=== PATIENT | male | born 1975 | race Caucasian/White ===

== ENCOUNTER 2025-01-28 19:29 | Emergency (ER) | payer OTHER, SELFPAY ==
[2025-01-28 19:31] VITALS: BP 141/81; PULSE 133; RESP 18; TEMP 36.4; O2SAT 97; BMI 33.4
--- NOTE | 2025-01-28 19:45 | EKG12_ITS ---
Test Reason : CP Blood Pressure : */* mmHG Vent. Rate : 137 BPM Atrial Rate : 137 BPM P-R Int : 132 ms QRS Dur : 80 ms QT Int : 294 ms P-R-T Axes : 39 55 38 degrees QTcB Int : 443 ms Sinus tachycardia Otherwise normal ECG Confirmed by Pablo Cloud ([id number]), international editorial producer BELLA NGUYEN ([id number]) on 01/30/2025 10:29:08 AM Referred By: Confirmed By: Pablo Cloud
[2025-01-28] MEDS: 0.9% Normal Saline (1000mL) 1,000 ML 999 ML IV (19:52)
[2025-01-28 19:54] LABS: Hematocrit 49.6 % (40-54); Hemoglobin 17.4 g/dL (13.0-16.5); Immature Granulocytes Count 0.080 X10^3/uL (0.0-0.0); Mean Corp Hgb Conc 35.1 g/dL (32-36); Mean Corpuscular Volume 92.4 fL (80-94); Mean Platelet Vol. 10.9 fl (6.2-12.0); NRBC Flagged by Analyzer 0 % (0-5); Platelet Count 234 K/mm3 (150-450); RBC Distribution Width CV 12.5 % (11.6-14.6); RBC Distribution Width SD 42.6 fl (35.1-43.9); Red Blood Count 5.37 M/mm3 (4.6-6.2); White Blood Count 10.0 K/mm3 (4.4-11.0)
--- NOTE | 2025-01-28 20:00 | RAD_ITS ---
PROCEDURE: CHEST 1 VIEW (PORTABLE) 01/28/2025 REASON FOR EXAM: CHEST PAIN TECHNIQUE: Frontal view of the chest. COMPARISON: None FINDINGS: No focal consolidation. Bibasilar subsegmental atelectasis. No pleural effusion or pneumothorax. Cardiac silhouette is within normal limits. No acute fractures. RAD/Chest 1 View (Portable) IMPRESSION: No focal consolidations. Bibasilar subsegmental atelectasis. Reading Location: [id number]
[2025-01-28 20:13] LABS: Anion Gap 10 (5-15); BUN 16 mg/dL (4-19); BUN/Creat Ratio 12.9 RATIO (10-20); Calcium,Total 9.0 mg/dL (7.6-11.0); Carbon Dioxide 26.0 mmol/L (21.0-32.0); Chloride 104 mmol/L (98-108); Estimated Creatinine Clearance 92.65 ml/min (50-250); Glucose 176 mg/dL (70-99); Potassium 3.6 mmol/L (3.3-5.1); Pro- Brain NATRIURETIC PEPTIDE < 36 pg/mL (<=450); Troponin T High Sensitivity 7 ng/L (<=22)
[2025-01-28 20:23] LABS: D-Dimer Quantitative (DVT/PE) 0.82 FEU/ug/m (0.27-0.49)
--- NOTE | 2025-01-28 20:23 | CT_ITS ---
PROCEDURE: CTA CHEST W/WO CONTRAST 01/28/2025 REASON FOR EXAM: ELEVATED DIMER TECHNIQUE: Procedure Code: [id number] Modality: CT Procedure: CTA CHEST W/WO CONTRAST Multiplanar Sagittal and Coronal images were obtained. 3D post processing was performed. CONTRAST: Isovue 370 VOLUME: 100 mL One or more dose reduction techniques were used (e.g., Automated exposure control, adjustment of the mA and/or kV according to patient size, use of iterative reconstruction technique). RADIATION DOSE SUMMARY: DLP: 537.33 mGycm COMPARISON: None. FINDINGS: PULMONARY VESSELS: No filling defects suspicious for pulmonary arterial emboli identified. Normal caliber main pulmonary trunk. No evidence of cardiac strain. LUNGS/PLEURA: Clear. No airspace consolidation or findings of pulmonary edema. Mild bilateral dependent atelectasis. No pneumothorax or pleural effusion. Patent central airways. MEDIASTINUM: Unremarkable. No lymphadenopathy. HEART: Normal in size. No pericardial effusion or coronary artery calcification. THORACIC AORTA: Normal. No aneurysm or dissection. UPPER ABDOMEN: Unremarkable, as visualized. BONES: Degenerative changes of the spine with DISH. CT/CTA Chest W/WO Contrast IMPRESSION: No acute intrathoracic abnormality. No pulmonary arterial emboli. Reading Location: [id number]
--- NOTE | 2025-01-28 20:29 | EDS_ITS ---
HPI History of Present Illness Chief Complaint: Chest Pain Narrative Narrative: Patient was seen and examined after presenting to ED for having multiple notifications on his Apple Watch stating that he was consistently having elevated heart rate above 120 states has been happening for couple hours now at this point started to have chest pain he states that he took his usual half of a gummy of delta 8 in order to help him sleep and it is the same brand that he usually uses no history of DVT or PE not on anticoagulation no known cardiac history himself. PFSH PFSH Medical History no medical history Home Medications ?Medication ?Instructions ?Recorded ?Last Taken ?Type ciprofloxacin HCl 500 mg tablet 500 mg PO BID 01/28/25 Unknown History Allergy/AdvReac Type Severity Reaction Status Date / Time Penicillins Allergy Unknown Verified 01/28/25 19:35 Family History no significant family his Surgical History no surgical history Social History Smoking Status: Never smoker ROS ROS ED ROS Narrative Pertinent Positives: Chest pain and pressure tachycardia shortness of breath Pertinent Negatives: Fevers chills nausea vomiting diarrhea body aches The remainder of review of systems negative unless otherwise stated in the HPI above. Systems reviewed including constitutional, psychiatric, cardiovascular, respiratory, integument, HENT, gastrointestinal. EXAM Physical Exam Narrative Exam Narrative: Patient is afebrile blood pressure is appropriate however he is consistently tachycardic in the 130s oxygenating well on room air though abdomen is soft nontender nondistended no palpable pulsatile mass he has intact and equal MSPs in his extremities no lower extremity edema or calf tenderness normal heart and lung sounds. Const Vital Signs: 01/28/25 19:31 01/28/25 19:36 01/28/25 19:55 Temperature 97.5 F L Temperature Source Oral Pulse Rate 133 H Respiratory Rate 18 Respiratory Effort Normal Non-Labored Blood Pressure 141/81 H Blood Pressure Mean 101 Pulse Ox 97 Oxygen Delivery Method Room Air Room Air 01/28/25 20:30 01/28/25 21:00 01/28/25 22:00 Temperature Temperature Source Pulse Rate 128 H 116 H 104 H Respiratory Rate 23 H 19 H Respiratory Effort Blood Pressure 118/78 123/73 H 122/65 H Blood Pressure Mean 91 89 84 Pulse Ox 97 94 91 Oxygen Delivery Method Room Air Room Air MDM MDM MDM Narrative Medical decision making narrative: Nursing notes, triage notes, available previous documentation, and vital signs were reviewed. Any discrepancies noted were addressed. Differential Diagnoses: Need to consider possibility of PE there was suspicion for ACS need to evaluate for electrolyte abnormalities he is sinus tachycardia on the monitor Interventions: 1 L normal saline Labs Reviewed: D-dimer is elevated at 0.82 no leukocytosis leukopenia hemoglobin is 17.4 no significant electrolyte abnormality creatinine is 1.2 troponin is 7 proBNP is less than 36 delta troponin was also unremarkable Imaging Reviewed: Personally reviewed and interpreted by me: Chest x-ray no pneumonia edema widened mediastinum or pneumothoraces CT angio of the chest without evidence of PE or other acute pathology EKG: Sinus tachycardia rate of 137. EKG interpretation is noted and agreed to in the EMR. The interpretation of this patient's EKG contributed directly to the care and management of this patient. Risk Stratification Tools: PERC Rule: Positive based on heart rate being greater than 100 and he is on testosterone PERC positive. D-Dimer ordered. Wells Score: Clinical signs & symptoms of DVT: No PE is #1 diagnosis or equally likely: No HR >100 at any time: Yes +1.5 Immobilization at least 3 days or surgery in the previous 4 weeks: No Previous, objectively diagnosed PE or DVT: No Hemoptysis: No Malignancy in last 6 months: No Risk: Low <2 points: 1.3% incidence of PE. PERC +. D-Dimer 0.82. Previous Documentation Reviewed: None available or applicable at this time. ED Course: Patient presenting with symptoms as stated above he was consistently tachycardic D-dimer is elevated we will get a CT angio of the chest. 2314: Patient's pain has improved and his heart rate is now in the 90s patient is feeling better overall delta troponin was 8 CT angio of the chest was without acute pathology especially for PE so at this point return precautions follow-up recommendations provided patient stable for discharge home This note was made utilizing voice recognition software. All attempts were made to correct spelling or other errors prior to note completion. However, due to the fast-paced nature of emergency medicine, some errors may still be present. Lab Data Labs: Laboratory Results - last 24 hr 01/28/25 01/28/25 01/28/25 19:40 19:50 21:40 WBC 10.0 RBC 5.37 Hgb 17.4 H Hct 49.6 MCV 92.4 MCH 32.4 H MCHC 35.1 RDW Std Deviation 42.6 RDW Coeff of Lyle 12.5 Plt Count 234 MPV 10.9 Immature Gran % (Auto) 0.800 Neut % (Auto) 69.0 Lymph % (Auto) 21.7 Clinch % (Auto) 6.6 Eos % (Auto) 1.4 Baso % (Auto) 0.5 Absolute Neuts (auto) 6.9 Absolute Lymphs (auto) 2.17 Nucleated RBC % 0 D-Dimer Quant (PE/DVT) 0.82 H* Sodium 140 Potassium 3.6 Chloride 104 Carbon Dioxide 26.0 Anion Gap 10 BUN 16 Creatinine 1.21 H Estim Creat Clear Calc 92.65 Est GFR (MDRD) Non-Af 73 BUN/Creatinine Ratio 12.9 Glucose 176 H Calcium 9.0 Troponin T High Sens 7 Troponin T Hi Sens 2 Hr 8 NT pro BNP II < 36 Radiography Diagnostic Testing: Clinical Impression(s) from Imaging Studies Chest X-Ray 01/28/25 20:00 IMPRESSION: No focal consolidations. Bibasilar subsegmental atelectasis. Reading Location: [facility] Chest CTA 01/28/25 20:23 IMPRESSION: No acute intrathoracic abnormality. No pulmonary arterial emboli. Reading Location: [facility] Discharge Plan Triage Chief Complaint: Chest Pain ED Provider: Luis Carlos Tapia Dx/Rx/DC Orders Clinical Impression: Chest pain of uncertain etiology, Sinus tachycardia Instructions: ED Chest Pain, Uncertain Cause Prescriptions: No Action ciprofloxacin HCl 500 mg tablet 500 mg PO BID Primary Care Provider: Care Physician,No Primary Referrals: Care Physician,No Primary [Primary Care Provider, Medical] Activity Restrictions/Additional Instructions: Please follow-up with your primary care doctor. You can always return if you are having worsening symptoms. Print Language: Georgian Disposition Disposition: Home, Self Care
[2025-01-28 20:30] VITALS: BP 118/78; PULSE 128; RESP 23; O2SAT 97
--- OUTSIDE RECORDS SUMMARY | 2025-01-28 20:47 | XMS RPT_ITS | CCD ---
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 Name Role Phone No, Physician Primary Care Provider Unavaileyad Giron III, MD, Frank A Primary Care Provider HARLEY SHARIF Admitting Unavailab HARLEY Patel Attending Unavailab AMOS Garcia III Primary Care Unavailable AMOS GIRON III Primary Care Unavailable JODY TRENT Attending Unavailable JODY TRENT Referring Unavailable BREE BABIN, AMOS Siddiqi Primary Care Unavailable TIM COPELAND Referring Unavailab JODY Serna Attending Unavailable JULIAN, PHYSICIAN Primary Care Unavailable PRIYANKA RÍOS Attending Unavailable Bree BABIN MD, Frank A Primary Care Provider [phone] AMOS GIRON III Primary Care Unavailable RENY MCLAUGHLIN Attending Unavailable AMOS GIRON III Primary Care Unavailable RENY MCLAUGHLIN Referring Unavailable RENY MCLAUGHLIN Admitting Unavailable Allergies Allergy Classification Reported Allergen(s) Allergy Type Date of Onset Reaction(s) Facility (12 sources) Penicillins; Translations: [PENICILLINS] Propensity to adverse reactions to drug 2 Other (See Comments) [facility] (6 sources) FLUoxetine; Translations: [FLUOXETINE] Drug Allergy 7 Other (See Comments) [facility] (1 source) Penicillins Propensity to adverse reactions to drug 2 Other (See Comments) [facility] Medications Current Medications Medication Drug Class(es) Dates Sig (Normalized) Sig (Original) acetaminophen 325 mg / HYDROcodone bitartrate 5 mg oral tablet (1 source) Opioid Agonist Start: 03-04-2021 End: 03-11-2021 take 1 tablet by mouth once as needed, then take 2 tablets by mouth every four hours as needed HYDROcodone-acetamin ophen (NORCO) 5-325 mg per tablet Indications: Rupture of distal biceps tendon, right, initial encounter Take 1 (one) tablet to 2 (two) tablets by mouth every 4 (four) hours as needed . 40 tablet 0 03/04/2021 03/11/2021 Active cyclobenzaprine hydrochloride 10 mg oral tablet (4 sources) Muscle Relaxant Start: 03-04-2021 End: 03-14-2021 take 1 tablet by mouth three times daily as needed for muscle spasms cyclobenzaprine (FLEXERIL) 10 MG tablet Indications: Rupture of distal biceps tendon, right, initial encounter Take 1 (one) tablet (10 mg total) by mouth 3 (three) times a day as needed for muscle spasms . 30 tablet 0 03/04/2021 03/14/2021 Active Start: 03-02-2021 End: 03-05-2021 take 2 tablets by mouth three times daily as needed for muscle spasms cyclobenzaprine (FLEXERIL) 5 MG tablet Take 2 (two) tablets (10 mg total) by mouth 3 (three) times a day as needed for muscle spasms . 9 tablet 0 03/02/2021 03/05/2021 Active ibuprofen 800 mg oral tablet (7 sources) Nonsteroidal Anti-inflammatory Drug Start: 02-13-2021 End: 02-18-2021 take 1 tablet by mouth every six hours as needed for pain ibuprofen (ADVIL,MOTRIN) 800 MG tablet Take 1 (one) tablet (800 mg total) by mouth every 6 (six) hours as needed for pain . 20 tablet 0 02/13/2021 02/18/2021 Active IBUPROFEN ORAL T lior by mouth . 0 Active predniSONE 50 mg oral tablet (1 source) Start: 01-17-2023 take 1 tablet by mouth once daily predniSONE (DELTASONE) 50 MG tablet Take 1 (one) tablet (50 mg total) by mouth daily . 5 tablet 0 01/17/2023 Active 0.5 ml testosterone enanthate 200 mg/ml auto-injector (6 sources) Androgen testosterone enanthate 100 mg/0.5 mL AtIn Inject 0.5 mL (100 mg total) under the skin every 7 days . 0 Active testosterone pantera nthate 100 mg/0.5 mL AtIn Inject 100 mg under the skin every 7 days . 0 Active Problems Active Problems Problem Classification Problem Date Documented Date Episodic/Chronic Other connective tissue disease (1 source) Radial styloid tenosynovitis; Translations: [Radial styloid tenosynovitis [de Quervain]] 01-19-2023 Episodic Residual codes; unclassified (2 sources) Pain, unspecified; Translations: [Pain, unspecified] Onset: 01-17-2023 Episodic Past or Other Problems Problem Classification Problem Date Documented Da te Episodic/Chronic Sprains and strains (13 sources) Rupture of tendon of biceps; Translations: [Strain of muscle, fascia and tendon of other parts of biceps, right arm, initial encounter] Onset: 03-02-2021 Episodic Results Test Name Value Interpretation Reference Range Facil ity XR WRIST RIGHT 3+ VIEWS (STA NDARD)on 01-17-2023 XR WRIST RIGHT 3+ VIEWS (STANDARD) EXAMINATION: XR WRIST RIGHT 3+ VIEWS (STANDARD) HISTORY: ORDERING SYSTEM PROVIDED HISTORY: Pain, TECHNOLOGIST PROVIDED HISTORY: Illness/Other Reason for exam: right wrist pain Cancer History: . Surgery, RadiationHistory: . Encounter Type: Ongoing Additional signs and symptoms: none ORDERING SYSTEM PROVIDED DIAGNOSIS CODES: R52 Pain COMPARISON: None FINDINGS: Three views of the right wrist. No acute fracture. Joint alignment is anatomic. Joint spaces are preserved. Soft tissues are within normal limits. IMPRESSION: No acute fracture or traumatic malalignment. Workstation ID: [id number] Dictated by: TED TANG on SunJan 17, 2023 3:46:09 PM EST Transcribed by: TED TANG on SunJan 17, 2023 3:46:09 PM EST Finalized by: TED TANG on SunJan 17, 2023 3:46:09 PM EST Normal [facility] Comment on above: Order Comment: Injur y/Trauma or Illness?:Illness/Other How long have you had these symptoms (acute/chronic)?:Chronic Reason for exam?:right wrist pain History of cancer?:. Surgeries, chemotherapy, or radiation?:. Type of Exam?:Ongoing Additional signs and symptoms?:none MR ELBOW RIGHT WITHOUT CONTR 02-25-2021 MR ELBOW RIGHT WITHOUT CONTRAST EXAMINATION: MRI OF THE RIGHT ELBOW WITHOUT CONTRAST 02/25/2021 TECHNIQUE: Multiplanar multisequence MRI of the right elbow was performed without the administration of intravenous contrast. COMPARISON: Radiograph of the right humerus dated 02/13/2021. HISTORY: ORDERING SYSTEM PROVIDED HISTORY: distal biceps rupture; TECHNOLOGIST PROVIDED HISTORY: Injury/Trauma Acuity: Acute Reason for Exam: LIFTING HEAVY TIRE AND FELT POP AT ELBOW BRUISING AND SWELLING SINCE R/O BICEPS TENDON RUPTURE. Type of Encounter: Initial Mechanism of Injury: LIFTING ORDERING SYSTEM PROVIDED DIAGNOSIS CODES: S46.211A Rupture of distal biceps tendon, right, initial encounter FINDINGS: MEDIAL EPICONDYLE: The common flexor origin from the medial epicondyle appears intact. LATERAL EPICONDYLE: There is fluid signal intensity seen along the common extensor tendon origin along the lateral humeral epicondyle, suspicious for underlying lateral epicondylitis/partial -thickness tearing. MEDIAL COLLATERAL LIGAMENT: Within the limitations of a nonarthrogram study, the ulnar collateral ligament appears intact. LATERAL COLLATERAL LIGAMENT: There are foci of increased signal intensity seen along the proximal fibers of the radial collateral ligament, suspicious for partial-thickness tearing. The lateral ulnar collateral ligament appears intact. MUSCLES / TENDONS: There is rupture of the distal biceps tendon with proximal retraction of the torn tendon fibers by approximately 3.5 cm. There is a small amount of fluid seen within the bicipitoradial bursa reflecting underlying concurrent bicipitoradial bursitis. The brachialis tendon appears intact. The triceps tendon appears intact. ULNAR NERVE: The ulnar nerve is normally located in the ulnar sulcus and is unremarkable in appearance. JOINT SPACES: No significant joint effusion is seen. No evidence of intraarticular body is seen. BONE MARROW: No evidence of acute fracture, dislocation or avascular necrosis is seen. SOFT TISSUES: There is [id number] soft tissue edema of the anterior soft tissues of the elbow reflecting recent injury. IMPRESSION: Rupture of the distal biceps tendon with proximal retraction of the torn tendon fibers by approximately 3.5 cm. Mild bicipitoradial bursitis. Imaging features of lateral epicondylitis and partial-thickness tear of the common extensor tendon as it originates along the lateral humeral epicondyle. Partial-thickness tear of the proximal fibers of the radial collateral ligament. LAUREL/jovanny/lynn Workstation ID: [id number] Dictated by: TED FARIAS on SunFeb 25, 2021 6:53:34 PM EST Transcribed by: HATTIE RAMOSI SPEECHQ on SunFeb 25, 2021 8:34:52 PM EST Finalized by: TED FARIAS on SunFeb 27, 2021 9:26:03 PM EST [facility] Comment on above: Order Comment: Injur y/Trauma or Illness?:Injury/Trauma How long have you had these symptoms (acute/chronic)?:Acute Reason for exam?:LIFTING HEAVY TIRE AND FELT POP AT ELBOW BRUISING AND SWELLING SINCE R/O BICEP TENDON RUPTURE. Type of Exam?:Initial Mechanism of injury?:LIFTING XR MR PLAIN FILMon XR MR PLAIN FILM EXAMINATION: MRI CLEARANCE RADIOGRAPH(S) 02/25/2021 5:41 pm COMPARISON: None. HISTORY: ORDERING SYSTEM PROVIDED HISTORY: AP LAT ORBIT FOR HX OF EYE METAL FOR MRI CLEARANCE; TECHNOLOGIST PROVIDED HISTORY: Illness/Other Acuity: Unknown Reason for Exam: MR screen only due to eye metal from work years ago- removed in ED Cancer History: . Surgery, Radiation History: . Type of Encounter: Initial ORDERING SYSTEM PROVIDED DIAGNOSIS CODES: T15.90XA Foreign body in eye FINDINGS: No metallic foreign body. Osseous structures appear intact. Paranasal sinuses are well aerated. IMPRESSION: No metallic foreign body in the orbits. Workstation ID: [id number] Dictated by: CARISSA KIM on SunFeb 25, 2021 5:57:23 PM EST Transcribed by: CARISSA KIM on SunFeb 25, 2021 5:57:23 PM EST Finalized by: CARISSA KIM on SunFeb 25, 2021 5:57:23 PM EST [facility] Comment on above: Order Comment: Injur y/Trauma or Illness?:Illness/Other How long have you had these symptoms (acute/chronic)?:Unknown Reason for exam?:MR screen only due to eye metal from work years ago- removed in ED History of cancer?:. Surgeries, chemotherapy, or radiation?:. Type of Exam?:Initial Additional signs and symptoms?:na XR HUMERUS RIGHT 2+ VIEWS (S TANDARD)on 02-13-2021 XR HUMERUS RIGHT 2+ VIEWS (STANDARD) EXAMINATION: XR HUMERUS RIGHT 2+ VIEWS (STANDARD) 02/13/2021 4:40 pm HISTORY: ORDERING SYSTEM PROVIDED HISTORY: humerus pain, TECHNOLOGIST PROVIDED HISTORY: Illness/Other Reason for exam: humerus pain Cancer History: . Surgery, RadiationHistory: . Encounter Type: Initial Additional signs and symptoms: felt and heard pop when lifting something ORDERING SYSTEM PROVIDED DIAGNOSIS CODES: COMPARISON: None IMPRESSION: FINDINGS/ No fracture or malalignment. There is an osteophyte at the lateral humeral epicondyle at the elbow. No elbow joint effusion. Workstation ID: [id number] Dictated by: ALON DON on [place] Feb 13, 2021 5:59:56 PM EST Transcribed by: ALON DON on [place] Feb 13, 2021 5:59:56 PM EST Finalized by: ALON DON on [place] Feb 13, 2021 5:59:56 PM EST [facility] Comment on above: Order Comment: Injur y/Trauma or Illness?:Illness/Other How long have you had these symptoms (acute/chronic)?:Acute Reason for exam?:humerus pain History of cancer?:. Surgeries, chemotherapy, or radiation?:. Type of Exam?:Initial Additional signs and symptoms?:felt and heard pop when lifting something Vital Signs Date Time Vital Sign Value Performing Clinician Aron craft 01-17-2023 15:27-0500 Body height 180.3 cm Reny Mclaughlin CNP Work Phone: [facility] 01-17-2023 15:27-0500 Body mass index (BMI) [Ratio] 35.57 kg/m2 Reny Mclaughlin CNP Work Phone: [facility] 01-17-2023 15:27-0500 Body weight 115.67 kg Reny Mclaughlin CNP Work Phone: [facility] 03-02-2021 15:13-0500 Body height 180.3 cm Harley Sharif MD Work Phone: [facility] 03-02-2021 15:13-0500 Body mass index (BMI) [Ratio] 32.08 kg/m2 Harley Sharif MD Work Phone: [facility] 03-02-2021 15:13-0500 Body weight 104.33 kg Harley Sharif MD Work Phone: [facility] 03-02-2021 15:13-0500 Diastolic blood pressure 90 mm[Hg] Harley Sharif MD Work Phone: [facility] 03-02-2021 15:13-0500 Heart rate 90 /min Harley Sharif MD Work Phone: [facility] 03-02-2021 15:13-0500 Systolic blood pressure 136 mm[Hg] Harley Sharif MD Work Phone: [facility] Encounters Encounter Date Encounter Type Care Provider Facility Start: 01-17-2023 End: 01-21-[address] [facility] Start: 01-17-2023 End: 01-17-2023 Office outpatient visit 15 minutes Reny Mclaughlin CNP Work Phone: [facility] Comment on above: Tenosynovitis, de Qu ervain (Primary Dx) Start: 04-15-2021 End: 04-15-2021 Postop follow up visit related to original px Harley Sharif MD Work Phone: [facility] Comment on above: Rupture of distal bi ceps tendon, right, initial encounter (Primary Dx) Start: 03-17-2021 End: 03-17-2021 Postop follow up visit related to original px Harley Sharif MD Work Phone: [facility] Comment on above: Rupture of distal bi ceps tendon, right, initial encounter (Primary Dx) Start: 03-04-2021 End: 03-04-2021 Refill Casandra Chung LPN [facility] Comment on above: Rupture of distal bi ceps tendon, right, initial encounter (Primary Dx) Start: 03-02-2021 End: 03-02-2021 Office outpatient new 20 minutes Harley Sharif MD Work Phone: [facility] Comment on above: Rupture of distal bi ceps tendon, right, initial encounter (Primary Dx) Start: 03-02-2021 Admission to [facility] Harley Sharif MD Work Phone: [facility] Comment on above: Rupture of distal bi ceps tendon, right, initial encounter (Primary Dx) Start: 03-01-2021 Documentation procedure Leslie naidu MA [facility] [place] Start: 02-28-2021 Orders Only Elkin López LPN [facility] [place] Comment on above: Rupture of distal bi ceps tendon, right, initial encounter (Primary Dx) Start: 02-25-2021 End: 02-26-2021 ambulatory AMOS GIRON III [facility] Start: 02-16-2021 End: 02-16-2021 Office outpatient new 20 minutes Jody Trent CNP Work Phone: [facility] Comment on above: Rupture of distal bi ceps tendon, right, initial encounter (Primary Dx) Start: 02-13-2021 End: 02-13-2021 Emergency department patient visit PHYSICIAN JULIAN [facility] Plan of Treatment Date Care Activity Detail Author Start: 10-13-2022 COVID-19 Vaccine () COVID-19 Vaccine () [facility] Start: 10-13-2022 Influenza vaccination Sequenti al Influenza Vaccine (#1) [facility] Start: 07-15-2021 COVID-19 Vaccine (3 - Booster for Pfizer series) COVID-19 Vaccine (3 - Booster for Pfizer series) [facility] Start: 06-14-2021 COVID-19 Vaccine (3 - Booster for Pfizer series) COVID-19 Vaccine (3 - Booster for Pfizer series) [facility] Start: 04-15-2021 End: 04-15-2021 Follow-up encounter 04/15/2021 Follow-Up Sports Medicine Harley Sharif MD [address] [place] [address] [facility] Start: 03-18-2021 End: 03-18-2021 Follow-up encounter 03/18/2021 Follow-Up Sports Medicine Harley Sharif MD [address] [place] [address] [facility] Start: 03-04-2021 End: 03-04-2021 Patient encounter procedure 03/04/2021 Office Visit Sports Medicine Harley Sharif MD [address] [place] [address] [facility] Start: 03-04-2021 End: 03-04-2021 Admission to same day surgery center 03/04/2021 Surgery Harley Sharif MD [address] [place] [address] Right distal biceps reconstruction [facility] Comment on above: Right distal biceps reconstruction Start: 03-04-2021 End: 03-04-2021 REPAIR TENDON BICEP [facility] Main [place] Start: 03-04-2021 Subsequent hospital visit by physician 03/04/2021 Hospital Encounter Harley Sharif MD [address] [place] [address] [facility] Start: 02-20-2021 Tetanus vaccination Tetanus: Every 1 0yrs [facility] Start: 02-16-2021 End: 02-16-2022 MR Elbow Right Without Contrast MR Elbow Right Without Contrast Imaging STAT Rupture of distal biceps tendon, right, initial encounter Expected: 02/16/2021, Expires: 02/16/2022 [facility] Work Phone: Comment on above: Expected: 02/16/2021 , Expires: 02/16/2022 Start: 10-13-2020 Influenza vaccination Sequenti al Influenza Vaccine (#1) [facility] Start: 01-17-1994 Hepatitis C screening Hepatitis C Sc reening [facility] Start: 01-17-1991 HIV screening HIV Screening [facility] Start: 1988 Depression screening using PHQ-9 (Patient Health Questionnaire 9) score Depression Screening (PHQ-2/9) [facility] Start: 01-17-1981 COVID-19 Vaccine (1) COVID-19 Vaccin e (1) [facility] Start: 01-17-1979 History and physical examination, annual for health maintenance Wellness Visit [facility] Start: 1976 Prostate specific antigen measurement PSA Level [facility] Start: 1976 Screening for malign ant neoplasm of colon [facility] REPAIR TENDON BICEP REPAIR TENDO N BICEP Rupture of distal biceps tendon, right, initial encounter [facility] [place] Payers Date Payer Category Payer Unknown [id number] 2021 Unknown [id number] 2021 Unknown [id number] 1975 Unknown [id number] [id number]. [id number] 1976 Unknown [id number] 2.16. [id number] 1976 Unknown [id number] 2.16. [id number] 1976 Unknown [id number] 2.16. [id number] 1976 Unknown [id number] 2.16. [id number] 1976 Unknown [id number] 2.16. 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 [facility] Start: 1975 Sex Assigned At [facility] on file [facility] Start: 04-05-2021 End: 04-15-2021 Exposure to SARS-CoV-2 (event) Not sure [facility] Start: 03-02-2021 End: 01-17-2023 Tobacco smoking status NHIS Never smoked tobacco [facility] Start: 03-02-2021 End: 01-17-2023 Tobacco use and exposure [facility] History of tobacco use Chews Tobacco [facility] Start: 03-02-2021 End: 04-15-2021 Alcohol intake Current drinker of alcohol (finding) [facility] Start: 03-02-2021 History SDOH Alcohol Comment not oft en [facility] Start: 01-19-2023 Alcohol intake Ex-drinker (finding) [facility] Start: 04-15-2021 History of Social function [facility] Start: 04-15-2021 Tobacco use panel [facility] Start: 02-25-2021 Gender identity Identifies as male gender (finding) [facility] Start: 02-25-2021 Sexual orientation Heterosexual (tyesha lamar) [facility] Clinical Notes 01-03-2021 to 2023 Arnoldo Reny Saldivar, [facility] - 2023 4:13 PM Stacey Sharif MD - 03/17/2021 10:58 AM Dominic Trent, [facility] - 03/01/2021 8:18 AM Margoth Argueta, [place] - 03/01/2021 8:13 AM EST Note Date & Type Note Facility 2023 History of Present illness Narrative [facility] [address] [facility] [address] [facility] [id number] Keenan Brown returns to the office today for right wrist pain. He states that started approximately 1 month ago without any type of injury. He denies any numbness or tingling into the hand or the fingers. 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 He reports the majority of his pain is located at the base of the thumb extending into the wrist joint more on the radial side. He has not taken any type of geyj-tkc-sktkamu medications on a consistent basis. The patient's past medical history, surgical history, social history, family history, medications and allergies were reviewed with the patient today and are available in the chart for further review. Allergies Allergen Reactions Fluoxetine Other (See Comments) Anxiety Penicillins Other (See Comments) Per patient unknown as a child Current Outpatient Medications: IBUPROFEN ORAL, Take by mouth ., Disp: , Rfl: predniSONE (DELTASONE) 50 MG tablet, Take 1 (one) tablet (50 mg total) by mouth daily ., Disp: 5 tablet, Rfl: 0 testosterone enanthate 100 mg/0.5 mL AtIn, Inject 0.5 mL (100 mg total) under the skin every 7 days ., Disp: , Rfl: Past Medical History: Diagnosis Date Sleep apnea Past Surgical History: Procedure Laterality Date SKIN GRAFT back TENDON REPAIR BICEPS Right 03/04/2021 Procedure: Right distal biceps reconstruction; Surgeon: Harley Sharif MD; Location: Main OR; Service: Orthopedic Social History Socioeconomic History Marital status: Single Tobacco Use Smoking status: Never Smokeless tobacco: Current Types: Chew Substance and Sexual Activity Alcohol use: Not Currently Comment: not often Drug use: Not Currently ROS: Review of Systems Musculoskeletal: Positive for arthralgias, joint swelling and myalgias. ORTHO: Right Hand Exam Tenderness The patient is experiencing tenderness in the snuff box and radial area. Range of Motion The patient has normal right wrist ROM. Muscle Strength The patient has normal right wrist strength. Tests Phalen s Sign: negative Tinel's sign (median nerve): negative Hood's test: positive Other Erythema: absent Scars: absent Sensation: normal Pulse: present Imaging: R Wrist: No acute fracture or traumatic malalignment Assessment/Plan: After examination and reviewing the patient x-ray images we discussed treatment options. I did offer him a cortisone injection which he politely declined. He would like to try oral medications first, he is not too thrilled of the idea of an injection. But, the oral medications and conservative measures do not provide him with adequate pain relief, I am more than happy to see him back in the office for an injection. documented in this encounter [facility] 03-17-2021 History of Present illness Narrative Kelvin comes in today for 2 week followup of his right distal biceps tendon reconstruction. At this point in time, his splint is removed. Wound is healed. No signs of infection. No erythema. No lymphangitis. No cellulitis. Radial, ulnar, median nerve is intact. He has a good elbow and wrist range of motion. IMPRESSION Two weeks status post right distal biceps tendon reconstruction. PLAN At this point in time, he will do local wound care, home exercises and I will see him in 4 weeks. documented in this encounter [facility] 03-01-2021 History of Present illness Narrative Reviewed MRI results, nurse to call patient about results and needing surgical intervention. He is scheduled with Dr. Sharif on Sunday03/04/2021. Dr. Sharif is aware of this patient and what he is needing to have done. documented in this encounter [facility] 03-01-2021 History of Present illness Narrative Spoke with Patient's SO , about MRI of the right Elbow, the Results are as followed , Rupture of the distal biceps tendon with proximal retraction of the torn tendon fibers by approximately 3.5 cm. Mild bicipitoradial bursitis. Imaging features of lateral epicondylitis and partial-thickness tear of the common extensor tendon as it originates along the lateral humeral epicondyle. Partial-thickness tear of the proximal fibers of the radial collateral ligament. Patient would like to see Dr. Harley Sharif in [facility] documented in this encounter [facility] 02-16-2021 History of Present illness Narrative Keenan Rickssyed 1975 CC: 46 y.o. is a he with No chief complaint on file. . Elbow Pain Patient complains of right elbow pain. Onset of the symptoms was 3 days ago. Inciting event: injury when he was lifting a heavy tire, felt several pops with instant pain and limited range of motion, that he dropped the truck tire instantly. Current symptoms include: pain radiating to the forearm, point tenderness distal biceps area and swellingand brusing. Pain is aggravated by: lifting heavy objects, supination/pronation as when opening doors. He is able to flex and extend his elbow with pain. Symptoms have been well-controlled. Patient has had no prior elbow problems. Evaluation to date: plain films, which were see imaging section of my note. Treatment to date: sling ER thinks possible muscle tear. PMH: Allergies Allergen Reactions Penicillins Current Outpatient Medications: ibuprofen (ADVIL,MOTRIN) 800 MG tablet, Take 1 (one) tablet (800 mg total) by mouth every 6 (six) hours as needed for pain ., Disp: 20 tablet, Rfl: 0 History reviewed. No pertinent past medical history. History reviewed. No pertinent surgical history. Social History Socioeconomic History Marital status: Single ROS: Review of Systems Constitutional: Negative for activity change and fatigue. HENT: Negative. Eyes: Negative. Respiratory: Negative for chest tightness and shortness of breath. Cardiovascular: Negative for chest pain. Gastrointestinal: Negative. Endocrine: Negative. Genitourinary: Negative. Musculoskeletal: Positive for arthralgias. Skin: Negative for color change. Allergic/Immunologic: Negative. Neurological: Negative for dizziness, light-headedness and numbness. Hematological: Negative. Psychiatric/Behavioral: Negative for agitation. PE: Physical Exam Constitutional: Appearance: He is well-developed. HENT: Head: Normocephalic and atraumatic. Right Ear: Tympanic membrane normal. Left Ear: Tympanic membrane normal. Nose: Nose normal. Mouth/Throat: Mouth: Mucous membranes are moist. Eyes: Pupils: Pupils are equal, round, and reactive to light. Cardiovascular: Rate and Rhythm: Normal rate and regular rhythm. Pulses: Normal pulses. Heart sounds: Normal heart sounds. Pulmonary: Effort: Pulmonary effort is normal. Breath sounds: Normal breath sounds. Abdominal: General: There is no distension. Palpations: Abdomen is soft. Musculoskeletal: General: Tenderness present. Cervical back: Normal range of motion and neck supple. Skin: General: Skin is warm and dry. Neurological: Mental Status: He is alert and oriented to person, place, and time. Psychiatric: Behavior: Behavior normal. Right Elbow Exam Tenderness The patient is experiencing tenderness in the radial capitellar joint (radial tuberosity ). Range of Motion Extension: normal Flexion: normal Pronation: abnormal Supination: abnormal Muscle Strength Pronation: 3/5 Supination: 3/5 Tests Varus: negative Valgus: negative Tinel's sign (cubital tunnel): negative Other Erythema: absent Scars: absent Sensation: normal Pulse: present Comments: Bruising and swelling to the medial elbow and into the forearm Imaging: IMPRESSION: FINDINGS/ No fracture or malalignment. There is an osteophyte at the lateral humeral epicondyle at the elbow. No elbow joint effusion. Diagnosis: Problem List Items Addressed This Visit None Visit Diagnoses Rupture of distal biceps tendon, right, initial encounter - Primary Plan: Discussed xray results, symptoms, and physical exam with patient today. Discussed that his symptoms and exam correlate with a distal biceps tendon rupture. I am ordering a MRI for further evaluation of this. Elbow sleeve provided to remind him not to use his elbow. Discussed surgical intervention if the tendon is ruptured. He will follow up after the MRI to determine the next treatment option. He and his understand and agree to proceed. Follow Up: Return After MRI. Jody Trent CNP documented in this encounter [facility] 01-03-2021 Note Patient Outreach (LUBNA BERMAN) KEENAN BROWN ([id number]) 1975 M Date Time Provider Department 01/03/21 CASSIE DENNY During your visit today, we recorded the following information about you: Cassie Denny Population Health Navigator 01/03/2021 10:00 AM Signed POPULATION HEALTH NAVIGATION OUTREACH Action/FYI I left a voice message re: pcp No care everywhere Contact made with patient or family member? NO Pt identified by name and : NO Outreach Outcome/Action Unable to reach patient: Left message Reason for Outreach Attribution: Provider Off-boarding Payer: Payor: [employer] / Plan: BLUE ACCESS PPO / Product Type: PPO / Care Gap Reviewed:: Reminder: Reminder note to check Health Maintenance for items below Health Maintenance items due: COVID-19 VACCINE(1) Never done DEPRESSION SCREENING Never done HEPATITIS C SCREENING Never done HIV SCREENING Never done INFLUENZA(1) due on 10/13/2020 Advanced Directives Completed: Have you ever planned for future healthcare decisions with a power of ip attorney, living will, or advance directives? No. Please bring a copy to your next appointment or email to Referrals: N/A Message Sent to Practice: NO Navigation Signature: Cassie Denny Population Health Navigator January 03, 2021 9:59 AM Allergies As of Date: 01/03/2021 Noted Allergy Reaction BEES 06/27/2014 14 - Other: See Comments FLUOXETINE 12/27/2016 14 - Other: See Comments Comments: Anxiety PENICILLINS 11/05/2009 Date Reviewed: 01/15/2017 Reviewed by: Michelle Santa LPN - Fully Assessed Reason for Visit: Population Health Navigation Outreach [3910] Cmt: Offboarding Prescriptions as of 01/03/2021 - sildenafil (REVATIO) 20 mg tablet Take 1-5 tablets 60 minutes prior to intended use. (Rodriguez only) - sertraline (ZOLOFT) 50 mg tablet Take 1 tablet by mouth once daily. Problem List As Of Date 01/03/2021 Noted Resolved TOBACCO USE DISORDER [F17.200] 04/20/2008 Headache [R51] Depression [F32.A] 11/05/2009 Osteoarthritis, knee [M17.10] 02/20/2011 TMJ (temporomandibular joint disorder) [M26.609]06/27/2014 Erectile dysfunction [N52.9] 01/15/2017 Encounter Status:Closed by [facility] [place] NAVIGATORCASSIE on 01/03/21 [place] 01-03-2021 Note HNO ID: [id number] Author: Cassie Denny [facility] [place] Health Navigator Service: ? Author Type: ? Type: Progress Notes Filed: 01/03/2021 10:00 AM Note Text: POPULATION HEALTH NAVIGATION OUTREACH Action/FYI I left a voice message re: pcp No care everywhere Contact made with patient or family member? NO Pt identified by name and : NO Outreach Outcome/Action Unable to reach patient: Left message Reason for Outreach Attribution: Provider Off-boarding Payer: Payor: [employer] / Plan: BLUE ACCESS PPO / Product Type: PPO / Care Gap Reviewed:: Reminder: Reminder note to check Health Maintenance for items below Health Maintenance items due: COVID-19 VACCINE(1) Never done DEPRESSION SCREENING Never done HEPATITIS C SCREENING Never done HIV SCREENING Never done INFLUENZA(1) due on 10/13/2020 Advanced Directives Completed: Have you ever planned for future healthcare decisions with a power of ip attorney, living will, or advance directives? No. Please bring a copy to your next appointment or email to Referrals: N/A Message Sent to Practice: NO Navigation Signature: Cassieshree Denny Population Health Navigator January 03, 2021 9:59 AM [place] Evaluation note Diagnosis Rupture of distal biceps tendon, right, initial encounter- [facility] Rupture of distal biceps tendon, right, initial encounter- [facility] Diagnosis Rupture of distal biceps tendon, right, initial encounter- Primary Rupture of distal biceps tendon, right, initial encounter- [facility] Diagnosis Rupture of distal biceps tendon, right, initial encounter- Primary Rupture of distal biceps tendon, right, initial encounter- Primary Rupture of distal biceps tendon, right, initial encounter [facility] Diagnosis Rupture of distal biceps tendon, right, initial encounter- [facility] Diagnosis Rupture of distal biceps tendon, right, initial encounter- [facility] Diagnosis Rupture of distal biceps tendon, right, initial encounter- [facility] Tenosynovitis, de Quervain- Primary Radial styloid tenosynovitis documented in this encounter [facility] Reason for Referral Specialty Diagnoses / Procedures Referred By Rodolfo t Referred To Contact Radiology Diagnoses Rupture of distal biceps tendon, right, initial encounter Procedures MR Elbow Right Without Contrast Jody Trent CNP [address] [facility] [address] [place] [address] Referral ID Status Reason Start Date Expiration Date V isits Requested Visits Authorized [id number] New Request 02/16/2021 02/16/2022 1 1 Specialty Diagnoses / Procedures Referred By Contac t Referred To Contact Orthopedic Surgery Diagnoses Rupture of distal biceps tendon, right, initial encounter Jody Trent CNP [address] [facility] [address] [place] [address] [place] [address] Referral ID Status Reason Start Date Expiration Date Visits Requested Visits Authorized [id number] Authorized Specialty Services Required/Pat ient's Best Interest 02/28/2021 02/28/2022 1 1 Advance Directives No Advanced Directives Records FoundDocuments on File Type Date Recorded 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 Directives and Livin g Will 02/13/2021 4:32 PM Documents on File Type Date Recorded 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 and Livin g Will 02/25/2021 5:33 PM Documents on File Type Date Recorded 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 and Livin g Will 02/25/2021 5:33 PM Documents on File Type Date Recorded 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 and Livin g Will 03/04/2021 6:52 AM Summary Purpose Family History No Family History Records FoundNo Family History Records FoundNo Family History Records FoundNo Family History Records Found Additional Source Comments Care Teams (unrecognized sec tion and content) 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 Relationship Specialty Start Date End Date No, Physician [facility] PCP - General 02/13/21 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 Relationship Specialty Start Date End Date Amos Giron III, MD [address] [place] [phone] PCP - General Family Medicine 02/25/21 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 Relationship Specialty Start Date End Date Amos Giron III, MD [address] [place] [address] [id number] PCP - General Family Medicine 02/25/21 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 Relationship Specialty Start Date End Date Amos Giron III, MD [address] [place] [address] [id number] PCP - General Family Medicine 02/25/21 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 Relationship Specialty Start Date End Date Amos Giron III, MD [address] [place] [address] [id number] PCP - General Family Medicine 02/25/21 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 Relationship Specialty Start Date End Date Amos Giron III, MD [address] [place] [address] [id number] PCP - General Family Medicine 02/25/21 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 Relationship Specialty Start [place] [address] [place] [address] [phone] PCP - General Family Medicine 02/25/21 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 Relationship Specialty Start [place] [address] [place] [address] [id number] PCP - General Family Medicine 02/25/21 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 Relationship Specialty Start Date End Date Amos Giron III, MD [address] [place] [address] [phone] PCP - General Family Medicine 02/25/21 Reason for Visit (unrecogniz ed section and content) Reason Comments Pain Pre-op Exam Reason Onset Date Comments Medication Refill 03/04/2021 Reason Comments Follow-up Suture / Staple Removal Wound Check Reason Comments Follow-up (unrecognized sect ion and content) No Status Records FoundNo Status Records FoundNo Status Records FoundNo Status Records Found INFORMATION SOURCE (unrecogn ized section and content) DATE CREATED AUTHOR 03/27/2021 [place] DATE CREATED AUTHOR AUTHOR'S ORGANIZ ATION 04/16/2021 [facility] DATE CREATED AUTHOR AUTHOR'S ORGANIZ ATION 04/16/2021 [facility] DATE CREATED AUTHOR AUTHOR'S ORGANIZ ATION 01/23/2023 [facility] FOR RECORDS PERTAINING TO PATIENTS WHO ARE OR HAVE BEEN ENROLLED IN A CHEMICAL DEPENDENCY/SUBSTANCEABUSE PROGRAM, SOME INFORMATION MAY BE OMITTED. This clinical summary was aggregated from multiple sources. Caution should be exercised in using it in the provision of clinical care. This summary normalizes information from multiple sources, and as a consequence, information in this document may materially change the coding, format and clinical context of patient data. In addition, data may be omitted in some cases. CLINICAL DECISIONS SHOULD BE BASED ON THE PRIMARY CLINICAL RECORDS. [employer] [facility]. provides no warranty or guarantee of the accuracy or completeness of information in this document.
[2025-01-28 21:00] VITALS: BP 123/73; PULSE 116; O2SAT 94
[2025-01-28 22:00] VITALS: BP 122/65; PULSE 104; RESP 19; O2SAT 91
[2025-01-28 22:14] LABS: Troponin T High Sens 2 HR 8 ng/L (<=22)
[2025-01-28 23:00] VITALS: PULSE 95; RESP 15; O2SAT 94
[2025-01-28 23:18] VITALS: BP 119/62; PULSE 95; RESP 13; TEMP 36.4; O2SAT 95
== END 2025-01-28 23:26 | disposition home or self-care (01) ==
PROVIDERS: Emergency Provider Specialist/Technologist Athletic Trainer; Visit Provider Specialist/Technologist Athletic Trainer
DX: R07.9 Chest pain, unspecified (principal); R00.0 Tachycardia, unspecified
CPT/HCPCS: 71045; 71275; 80048; 83880; 84484; 85025; 85379; 93005; 96360; 99285; Q9967; A4216